=== PATIENT | female | born 1995 | race Caucasian/White ===

== ENCOUNTER 2021-11-12 08:00 | Outpatient (CLI) | payer MEDICAID ==
[2021-11-12 21:56] LABS: CHLAMYDIA TRACHOMATIS DNA NEGATIVE (NEGATIVE); NEISSERIA GONORRHOEAE DNA NEGATIVE (NEGATIVE); TRICHOMONAS VAGINALIS DNA NEGATIVE (NEGATIVE)
== END 2021-11-12 23:59 | disposition home or self-care (01) ==
LOC: LAB 08:00
PROVIDERS: ATTEND Nurse Practitioner
DX: Z11.3 Encounter for screening for infections with a predominantly sexual mode of transmission (principal)
CPT/HCPCS: 87491; 87591; 87661

== ENCOUNTER 2021-11-13 15:23 | Outpatient (CLI) | payer MEDICAID ==
[2021-11-15 09:42] LABS: HEPATITIS C ANTIBODY NON-REACTIVE (NON-REACTIVE)
[2021-11-15 13:07] LABS: HIV AG/AB 4TH GEN NON-REACTIVE (NON-REACTIVE)
[2021-11-16 12:46] LABS: HSV 1 IGG TYPE SPECIFIC AB >58.00 index; HSV 2 IGG TYPE SPECIFIC AB <0.90 index
== END 2021-11-13 15:24 | disposition home or self-care (01) ==
LOC: LAB.N 15:23
PROVIDERS: ATTEND Nurse Practitioner
DX: Z11.3 Encounter for screening for infections with a predominantly sexual mode of transmission (principal)
CPT/HCPCS: 36415; 81599; 86592; 86695; 86696; 86803; 87389